=== PATIENT | male | born 1985 | race Caucasian/White ===

== ENCOUNTER 2018-05-07 01:10 | Emergency (ER) | payer MEDICAID ==
[~2018-05-07] VITALS: Ht 182.9 cm; Wt 38.3 kg
[2018-05-07 01:18] VITALS: Ht 182.9 cm; Wt 38.3 kg
[2018-05-07 02:11] VITALS: BP 141/74
== END 2018-05-07 02:56 | disposition home or self-care (01) ==
LOC: ED 01:10
DX: S43.085A Other dislocation of left shoulder joint, initial encounter (principal); X58.XXXA Exposure to other specified factors, initial encounter; Y93.83 Activity, rough housing and horseplay; Y92.89 Other specified places as the place of occurrence of the external cause; Y99.8 Other external cause status
CPT/HCPCS: J1885; Q0092